=== PATIENT | male | born 2000 | race Two or more races ===

== ENCOUNTER 2024-09-16 16:08 | Emergency (ER) | payer OTHER, SELFPAY ==
[2024-09-16 16:25] VITALS: BP 138/84; PULSE 78; RESP 19; TEMP 36.8; O2SAT 98
--- NOTE | 2024-09-16 16:30 | XR_ITS ---
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
[2024-09-16] MEDS: DIPHTH,PERTUSS(ACELL),TET VAC 0.5 ML VIAL IMi (16:34)
--- NOTE | 2024-09-16 17:32 | EDNOTE_ITS ---
ED Wound/Laceration-RME/HPI General Chief Complaint: Wound/Laceration Stated Complaint: LAC TO LEFT LOTT FROM METAL PER PT Time Seen by Provider: 09/16/24 16:09 Arrival date/time: 09/16/24 16:08 24-year-old male presents emergency department complaints of puncture wound to his left lower extremity while at work today patient reports a metal shard hit his leg Limitations: no limitations Related Data Previous Rx's ?Medication ?Instructions ?Recorded acetaminophen 500 mg tablet 500 mg PO Q4H PRN pain #10 tabs 08/20/19 albuterol sulfate 90 mcg/actuation 2 puff inhalation Q6H PRN cough 08/20/19 aerosol inhaler #6.7 grams benzonatate 100 mg capsule 100 mg PO TID PRN cough #7 caps 08/20/19 (Tessalon Perles) naproxen sodium 550 mg tablet 550 mg PO Q12H PRN pain #10 tabs 08/20/19 albuterol sulfate 90 mcg/actuation 2 puff inhalation Q6H PRN cough / 06/24/20 aerosol inhaler wheezing #6.7 grams azithromycin 250 mg tablet See Rx Instructions PO .COMPLEX #6 06/24/20 (Zithromax) tabs benzonatate 100 mg capsule See Rx Instructions .Route 06/24/20 (Tessalon Perles) .COMPLEX PRN cough #30 caps inhalational spacing device #1 ea 06/24/20 (Aerochamber MV spacer) cephalexin 500 mg tablet 500 mg PO QID 7 days #28 tabs 09/16/24 ibuprofen 800 mg tablet 800 mg PO TID PRN pain #30 tabs 09/16/24 Allergies Allergy/AdvReac Type Severity Reaction Status Date / Time No Known Allergies Allergy Verified 09/16/24 16:09 Review of Systems Review of Systems Systems Reviewed: All systems reviewed, normal except as documented Constitutional Constitutional: Reports system reviewed and no additional complaints, except as documented, Denies fever(s) and Denies headache(s) Eyes Eyes: Reports system reviewed and no additional complaints, except as documented and Denies blurry vision ENT Ears, Nose, Mouth, and Throat: Reports system reviewed and no additional complaints, except as documented, Denies headache(s), Denies nasal congestion and Denies nasal discharge Cardiovascular Cardiovascular: Reports system reviewed and no additional complaints, except as documented, Denies chest pain and Denies dyspnea Respiratory Respiratory: Reports system reviewed and no additional complaints, except as documented, Denies chest congestion, Denies cough and Denies dyspnea Gastrointestinal Gastrointestinal: Reports system reviewed and no additional complaints, except as documented and Denies abdominal pain Integumentary/Breasts Skin/Breast: Reports system reviewed and no additional complaints, except as documented, Denies rash and Reports wounds (Puncture wound right lower extremity) Neurologic Neurologic: Reports system reviewed and no additional complaints, except as documented, Reports as per HPI and Denies headache(s) Past Medical History Social History SMOKING STATUS: Current every day smoker ED Exam General Limitations: Present no limitations General appearance: Present alert and in no apparent distress Head Head exam: Present atraumatic Eye Eye exam: Present normal appearance, PERRL and EOMI ENT ENT exam: Present normal exam, normal oropharynx and mucous membranes moist Neck Neck exam: Present normal inspection, full ROM and trachea midline Chest Chest inspection: Present normal inspection and symmetric chest wall rise Respiratory Respiratory exam: Present normal lung sounds bilaterally Cardiovascular Cardiovascular exam: Present regular rate, normal rhythm and normal heart sounds Abdominal Exam Abdominal exam: Present soft and normal bowel sounds Extremities Exam Extremities exam: Present full ROM, tenderness, normal capillary refill and other (Small puncture wound); Absent joint swelling Back Exam Back exam: Present normal inspection and full ROM Neurological Exam Neurological exam: Present alert, oriented X3 and CN II-XII intact Psychiatric Psychiatric exam: Present normal affect and normal mood Skin Skin exam: Present warm, dry and other (Puncture wound right lower extremity) Course Quality Measures none Orders Category Date Time Status Wound Care NOW Care 09/16/24 16:31 Completed XR tibia fibula LT 2V Stat Exams 09/16/24 16:30 Completed Lidocaine 1% 20 ml [Xylocaine 1% 20 ML] Med 09/16/24 16:30 Discontinued 20 ml INFL X1 ONE Tet,Diphth,Pertuss(Acell)-Tdap [Boostrix Vacc] Med 09/16/24 16:30 Discontinued 0.5 ml IMI .ONCE ONE Vital Signs Vital signs: Vital Signs Temperature 98.3 F 09/16/24 16:25 Pulse Rate 78 09/16/24 16:25 Respiratory Rate 19 09/16/24 16:25 Blood Pressure 138/84 H 09/16/24 16:25 Pulse Oximetry (%) 98 09/16/24 16:25 Oxygen Delivery Method Room Air 09/16/24 16:25 O2 saturation 98% room air within normal limits Wound / Laceration MDM Narrative MDM Narrative:: 24-year-old male presents emergency department complaints of puncture wound to his left lower extremity while at work today patient reports a metal shard hit his leg On exam patient has a very small puncture wound less than half a centimeter Wound irrigated copiously x-ray obtained patient does have 2 small metal shards I believe at this time they are too deep to attempt to remove here in the emergency department Consultation: I spoke with Dr. Villatoro orthopedist does not recommend removing foreign bodies or attempting removal reports put the patient on antibiotics and have him follow-up in his office Patient given tetanus and discharge home with antibiotics For emergent concerns patient struck to return immediately Patient data External records reviewed:: [facility] previous records Clinical information provided by:: patient Social determinants that could affect healthcare access:: none Patient has the following chronic illnesses:: None How is presenting disease/condition affected by chronic disease/condition?: no chronic disease Evaluation data The following diagnostics were reviewed and interpreted by me:: radiology exam(s) Lab and/or radiology exams considered but not ordered:: Radiology obtained Interpretation Summary: Reviewed by me Medications / Prescriptions Medications or Prescriptions considered but not ordered:: Given Medication administrations:: Medication Administration History Discontinued Medications Diphtheria/Tetanus/Acell Pertussis (Diphth,Pertuss(Acell),Tet Vac 0.5 Ml Vial) 0.5 ml IMi .ONCE ONE Stop: 09/16/24 16:31 Last Admin: 09/16/24 16:34 Dose: 0.5 ml Documented By: LP Lidocaine HCl (Lidocaine Hcl 1% 20 Ml Vial) 20 ml INFL X1 ONE Stop: 09/16/24 16:31 Given Consultations Consultation(s) initiated? (list below): Yes Consultation #1 (Physician, Specialty, Details): Dr Johnson Diagnosis Wound Differential Diagnosis: laceration, abscess, abrasion and avulsion of skin Most likely diagnosis given after review of the tests above:: Puncture wound Admission Indicated Admission indicated?: not indicated Admission Request Was there a request for admission?: No Disposition Plan Disposition Plan: Discharge Discharge Attestation Discharge Attestation: The patient and all family members were given an opportunity to ask questions and understood the discharge instructions. Discharge instructions specifically effects, indications for sooner follow up or return to the emergency department, and the expected course of current diagnosis. Patient condition: Stable Discharge Plan Plan Patient Disposition: HOME (Self Care) Disposition Comment: Stable Prescriptions/Referrals Prescriptions/Med Rec: New ibuprofen 800 mg tablet 800 mg PO TID PRN (Reason: pain) Qty: 30 0RF cephalexin 500 mg tablet 500 mg PO QID 7 Days Qty: 28 0RF No Action albuterol sulfate 90 mcg/actuation HFA aerosol inhaler 2 puff INH Q6H PRN (Reason: cough / wheezing ) Qty: 6.7 0RF Rx Instructions: administer with spacer (DME) Aerochamber MV spacer See Dose Instructions .ROUTE .MEDSUPPLY Qty: 1 0RF Dose Instruction: As directed Rx Instructions: As directed azithromycin [Zithromax] 250 mg tablet See Rx Instructions .ROUTE .COMPLEX Qty: 6 0RF Rx Instructions: take 500 mg today (day 1), then 250 mg for 4 days (days 2-5) benzonatate [Tessalon Perles] 100 mg capsule See Rx Instructions .ROUTE .COMPLEX PRN (Reason: cough) Qty: 30 0RF Rx Instructions: 1-2 PO Q8 hours prn cough acetaminophen 500 mg tablet 500 mg PO Q4H PRN (Reason: pain) Qty: 10 0RF naproxen sodium 550 mg tablet 550 mg PO Q12H PRN (Reason: pain) Qty: 10 0RF benzonatate [Tessalon Perles] 100 mg capsule 100 mg PO TID PRN (Reason: cough) Qty: 7 0RF albuterol sulfate 90 mcg/actuation HFA aerosol inhaler 2 puff INH Q6H PRN (Reason: cough) Qty: 6.7 0RF Referrals: Rich Johnson MD [Physician] - 09/19/24 10:00 am Problem List Clinical Impression: Puncture wound of left lower extremity, Work related injury Patient/Caregiver Discharge Instructions Education Materials: First Aid: Punctures Additional Instructions: Please follow-up with Workmen's Compensation as discussed for worsening symptoms return immediately Print Language: Upper Sorbian Stand Alone Forms: Dinorah Award Info., Patient Portal Info Letter Attestation Attestation The patient was seen by the midlevel practitioner. I, the co-signing physician, was present during the entire ER visit. While I did not physically examine the patient, I was available for consultation as needed.
== END 2024-09-16 17:47 | disposition home or self-care (01) ==
PROVIDERS: Emergency Provider Emergency Medicine; PCP Family Medicine
DX: S81.842A Puncture wound with foreign body, left lower leg, initial encounter (principal); W26.8XXA Contact with other sharp object(s), not elsewhere classified, initial encounter; Y99.0 Civilian activity done for income or pay; Z23 Encounter for immunization
CPT/HCPCS: 73590; 90471; 90715; 99283